=== PATIENT | male | born 1990 | race Caucasian/White ===

== ENCOUNTER → 2025-03-13 17:38 | Outpatient (CLI) | payer BC, SELFPAY ==
[2025-03-13 18:25] LABS: Influenza A - CEPHEID Flu A NEGATIVE (NEGATIVE); Influenza B - CEPHEID Flu B NEGATIVE (NEGATIVE); Respiratory Syncytial Virus Negative (Negative)
[2025-03-13 18:27] LABS: COVID-19 CEPHEID 4-PLEX PCR Negative (Negative)
== END ==
PROVIDERS: Visit Provider Nurse Practitioner Family
DX: R05.1 Acute cough (principal)
CPT/HCPCS: 0241U